=== PATIENT | male | born 1945 | race Caucasian/White ===

== ENCOUNTER 2020-09-22 04:04 | Emergency (ER) | payer OTHER ==
[~2020-09-22] VITALS: Ht 180 cm; Wt 80.7 kg
--- NOTE | 2020-09-22 04:26 | ED Integumentary General ---
General Chief Complaint: Allergic Reaction Stated Complaint: RASH/HANDS BURNING Source: patient Exam Limitations: no limitations History of Present Illness Date Seen by Provider: Sep 22, 2020 Time Seen by Provider: 04:15 Initial Comments Patient is a 75-year-old male who presents to the emergency department today with a chief complaint of hives all over including his palms and fingers with swelling in his hands. Patient states that he woke up with hives this morning. He states they are all over his torso and legs. He states he has been "whelps" all over his legs. He cannot recall any particular triggers. He has never had anything like this before. He denies any problems swallowing or breathing and no oral swelling. Denies any complaints of illness or injury. All other review of systems reviewed and negative except as stated. Timing/Duration: just prior to arrival Severity: moderate Location: torso, hands, extremities, generalized Possible Cause: no cause identified Modifying Factors: improves with antihistamine (Patient states he did take 125 mg Benadryl at about 330 this morning.) Associated Symptoms: denies symptoms Allergies and Home Medications Allergies Coded Allergies: No Known Drug Allergies (Unverified , 09/22/20) Home Medications Methylprednisolone 4 Mg Tab.ds.pk, 4 MG PO UD PER DOSE PACK INSTRUCTIONS Prescribed by: FLORENCE SCHNEIDER on 09/22/20 0435 Patient Home Medication List Home Medication List Reviewed: Yes Review of Systems Review of Systems Constitutional: see HPI EENTM: no symptoms reported Respiratory: no symptoms reported Cardiovascular: no symptoms reported Gastrointestinal: no symptoms reported Genitourinary: no symptoms reported Musculoskeletal: no symptoms reported Skin: pruritus, rash All Other Systems Reviewed Negative Unless Noted: Yes Physical Exam Vital Signs Vital Signs - First Documented 09/22/20 04:10 Temp 36.0 Pulse 53 Resp 18 B/P (MAP) 186/106 (132) O2 Delivery Room Air Capillary Refill : General Appearance: WD/WN, no apparent distress HEENT: normal ENT inspection, pharynx normal Neck: normal inspection Cardiovascular: regular rate, rhythm Respiratory: lungs clear, normal breath sounds, no respiratory distress, no accessory muscle use Gastrointestinal: non tender, soft Extremities: normal range of motion, non-tender, swelling (Patient has swelling to the bilateral hands) Neurologic/Psychiatric: alert, normal mood/affect, oriented x 3 Skin: normal color, warm/dry, rash (Hive-like rash involving the arms including the hands, chest and abdomen and legs) Skin Problem Location: generalized Skin Problem Character: erythema, urticarial Progress/Results/Core Measures Results/Orders My Orders Orders - FLORENCE SCHNEIDER MD Diphenhydramine Injection (Benadryl Inje (09/22/20 04:30) Methylprednisolone Sod Succ (Solu-Medrol (09/22/20 04:30) Famotidine Injection (Pepcid Injection) (09/22/20 04:30) Methylprednisolone Sod Succ (Solu-Medrol (09/22/20 04:30) Medications Given in ED Current Medications Medications Dose Ordered Sig/Chao Route Start Time Stop Time Status Last Admin Dose Admin Diphenhydramine HCl 25 mg ONCE ONCE IVP 09/22/20 04:30 09/22/20 04:31 DC 09/22/20 04:29 25 MG Famotidine 20 mg ONCE ONCE IVP 09/22/20 04:30 09/22/20 04:31 DC 09/22/20 04:28 20 MG Methylprednisolone Sodium Succinate 125 mg ONCE ONCE IVP 09/22/20 04:30 09/22/20 04:31 DC 09/22/20 04:31 125 MG Vital Signs/I&O 09/22/20 04:10 Temp 36.0 Pulse 53 Resp 18 B/P (MAP) 186/106 (132) O2 Delivery Room Air Progress Progress Note : Time: 05:11 Progress Note Patient is feeling much better after IV Benadryl, Pepcid and Solu-Medrol. Will discharge home with instructions to continue Benadryl and Pepcid for the next 48 hours. I have given prescription a prescription for the Medrol Dosepak. All questions are sought and answered. Patient is stable for discharge. Departure Impression Primary Impression: Hives Disposition: HOME, SELF-CARE Condition: Stable Departure-Patient Inst. Decision time for Depature: 04:26 Referrals: [facility]/CARYN COOPER,LOCAL PHYSICIAN (PCP) Primary Care Physician Patient Instructions: Hives Add. Discharge Instructions: Take the Benadryl 1 to 2 tablets every 6 hours as needed for itching. Take [id number] Pepcid 20 mg once daily for the next 3 to 5 days. Take the Medrol Dosepak as prescribed. This is a tapering dose of steroids over the next several days. Return to the emergency department if you have any worsening symptoms of swelling, rash, shortness of breath difficulty swallowing or talking or any other emergent concerning symptoms Scripts Methylprednisolone (Methylprednisolone Dose Pack) 4 Mg Tab.ds.pk 4 MG PO UD for 6 Days, #21 PKG PER DOSE PACK INSTRUCTIONS Prov: FLORENCE SCHNEIDER MD 09/22/20 FLORENCE SCHNEIDER MD Sep 22, 2020 04:26
[2020-09-22] MEDS ORDERED: diphenhydrAMINE 50 MG/ML INJ (BENADRYL) IVP ONE (04:30)
[2020-09-22] MEDS ORDERED: FAMOTIDINE 20MG/2ML IV (PEPCID) IVP ONE (04:30)
[2020-09-22] MEDS ORDERED: methylPREDNISolone 125 MG (Solu-MEDROL) VIAL IVP ONE (04:30)
[2020-09-22] MEDS ORDERED: methylPREDNISolone 125 MG (Solu-MEDROL) VIAL IM ONE (04:30)
[2020-09-22] MEDS ORDERED: METH4TAB10 PO (04:35)
[2020-09-22 05:16] VITALS: BP 151/94
== END 2020-09-22 05:16 | disposition home or self-care (01) ==
LOC: ER 04:07
DX: L50.9 Urticaria, unspecified (principal)